=== PATIENT | male | born 1985 | race Caucasian/White ===

== ENCOUNTER 2017-01-30 04:02 | Inpatient (IN) | payer OTHER ==
[2017-01-30] VITALS (9 sets, daily range): BP systolic 117–135; BP diastolic 63–86; PULSE 78–112; RESP 14–22; TEMP 96.4–99; O2SAT 93–100
[~2017-01-30] VITALS: Ht 172.7 cm; Wt 88.5 kg
[2017-01-30] MEDS ORDERED: PROPOFOL 200 MG/20 ML AMP ONE (04:07)
[2017-01-30] MEDS ORDERED: DIPHTH/TETANUS/ACEL PERTUSSIS (BOOSTER) 0.5 ML VIAL/PFS IM ONE (04:17)
[2017-01-30] MEDS ORDERED: ceFAZolin 2 GM PREMIX 50 ML IV STA (04:18)
[2017-01-30] MEDS ORDERED: IOHEXOL 350 MG/ML 10 ML VIAL (for RAD DIAG) IV ONE (04:22)
[2017-01-30 04:23] LABS: AUTOMATED NEUTROPHIL # 6.1 TH/MM3 (1.8-7.7); BASOPHIL % 0.4 % (0.0-2.0); EOSINOPHIL # 0.5 TH/MM3 (0-0.4); EOSINOPHIL % 4.7 % (0.0-4.0); HEMATOCRIT 40.9 % (39.0-51.0); HEMO FLAGS DIFF FINAL; LYMPHOCYTE # 2.9 TH/MM3 (1.0-4.8); MEAN CELL VOLUME 91.2 FL (80.0-100.0); MEAN CORPUSCULAR HEMOGLOBIN 31.4 PG (27.0-34.0); MEAN CORPUSCULAR HGB CONC 34.4 % (32.0-36.0); MONO % 7.7 % (0.0-8.0); NEUT % 59.2 % (16.0-70.0); PLATELET COUNT 227 TH/MM3 (150-450); RED BLOOD COUNT 4.49 MIL/MM3 (4.50-5.90); RED CELL DISTRIBUTION WIDTH 13.3 % (11.6-17.2); WHITE BLOOD COUNT 10.3 TH/MM3 (4.0-11.0)
[2017-01-30 04:26] LABS: I-STAT POTASSIUM 3.8 MMOL/L (3.5-4.9)
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
[2017-01-30 04:56] LABS: APTT (PATIENT) 28.7 SEC (24.3-30.1); PROTHROMBIN TIME - PATIENT 10.9 SEC (9.8-11.6)
[2017-01-30] MEDS ORDERED: POTASSIUM PHOSPHATE MONOBASIC 500 MG TAB PO/TUBE PRN (05:00)
[2017-01-30] MEDS ORDERED: CHLORHEXIDINE GLUCONATE 2 % 1 PACK (2 CLOTHS) TOP PRN (05:00)
[2017-01-30] MEDS ORDERED: MAGNESIUM OXIDE 400 MG TAB PO PRN (05:00)
[2017-01-30] MEDS ORDERED: MAGNESIUM SULFATE INJ 2 GM in SODIUM CHLORIDE 0.9% INJ 96 ML IV PRN (05:00)
[2017-01-30] MEDS ORDERED: MAGNESIUM SULFATE INJ 4 GM in SODIUM CHLORIDE 0.9% INJ 92 ML IV PRN (05:00)
[2017-01-30] MEDS: SODIUM CHLOR 0.9% 1000 ML INJ 1,000 ML IV SCH ×3 (05:00→22:03)
[2017-01-30] MEDS ORDERED: ONDANSETRON HCL 4 MG/2 ML VIAL IV PRN (05:00)
[2017-01-30] MEDS ORDERED: POTASSIUM CHLOR 20 MEQ PREMIX 100 ML IV PRN ×2 (05:00)
[2017-01-30] MEDS ORDERED: MISCELLANEOUS NURSING INFORMATION XX SCH (05:00)
[2017-01-30] MEDS ORDERED: POTASSIUM CHLOR 40 MEQ PREMIX 100 ML IV PRN ×2 (05:00)
[2017-01-30] MEDS ORDERED: SODIUM CHLORIDE 0.9% FLUSH 5 ML FLUSH IV FLUSH PRN (05:00)
[2017-01-30] MEDS ORDERED: POTASSIUM PHOSPHATE INJ 30 MMOL in SODIUM CHLOR 0.9% 250 ML INJ 250 ML IV PRN (05:00)
[2017-01-30] MEDS ORDERED: POTASSIUM PHOSPHATE MONOBASIC 500 MG TAB PO PRN (05:00)
[2017-01-30] MEDS ORDERED: SODIUM PHOSPHATE INJ 30 MMOL in SODIUM CHLOR 0.9% 250 ML INJ 240 ML IV PRN (05:00)
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
[2017-01-30] MEDS ORDERED: LACTATED RINGER'S 1000 ML INJ 1,000 ML IV ONE (05:15)
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
[2017-01-30] MEDS ORDERED: ACETAMINOPHEN 1000 MG/100 ML VIAL IV ONE (08:03)
[2017-01-30] MEDS ORDERED: DOCUSATE SODIUM 50 MG/SENNA 8.6 MG TAB PO SCH (09:00)
[2017-01-30] MEDS ORDERED: SODIUM CHLORIDE 0.9% FLUSH 5 ML FLUSH IV FLUSH SCH (09:00)
[2017-01-30] MEDS: LACTULOSE SYRUP 20 GM/30 ML CUP PO SCH (09:00)
[2017-01-30] MEDS ORDERED: VANCOMYCIN HCL 1000 MG VIAL ONE (09:02)
[2017-01-30 09:09] LABS: AUTOMATED NEUTROPHIL # 8.2 TH/MM3 (1.8-7.7); BASOPHIL % 0.2 % (0.0-2.0); EOSINOPHIL # 0.1 TH/MM3 (0-0.4); EOSINOPHIL % 0.6 % (0.0-4.0); HEMATOCRIT 31.4 % (39.0-51.0); LYMPH % 8.8 % (9.0-44.0); LYMPHOCYTE # 0.9 TH/MM3 (1.0-4.8); MEAN CELL VOLUME 89.1 FL (80.0-100.0); MEAN CORPUSCULAR HEMOGLOBIN 31.5 PG (27.0-34.0); MEAN CORPUSCULAR HGB CONC 35.4 % (32.0-36.0); MONO % 9.7 % (0.0-8.0); NEUT % 80.7 % (16.0-70.0); PLATELET COUNT 211 TH/MM3 (150-450); RED BLOOD COUNT 3.52 MIL/MM3 (4.50-5.90); RED CELL DISTRIBUTION WIDTH 13.2 % (11.6-17.2); WHITE BLOOD COUNT 10.1 TH/MM3 (4.0-11.0)
[2017-01-30 09:11] LABS: BLOOD GAS BASE EXCESS -5.5 mmol/L (-2-2); BLOOD GAS CARBOXYHEMOGLOBIN 3.1 % (0-4); BLOOD GAS HCO3 19 mmol/L (22-26); BLOOD GAS METHEMOGLOBIN 1.2 % (0-2); BLOOD GAS O2 HGB SATURATION 96 % (90-100); BLOOD GAS OXYGEN CONTENT 15.8 Vol % (12.0-20.0); BLOOD GAS PCO2 31 mmHg (38-42); BLOOD GAS PO2 286 mmHg (61-120); BLOOD GAS TOTAL HGB 11.3 G/DL (12.0-16.0); CRITICAL VALUE NO; FIO2 21 %; OXYGEN DEVICE VENTILATOR; TEMP CORR TO 98.6; VENT SETTINGS OR SETTINGS
[2017-01-30 09:12] LABS: HEMO FLAGS AUTO DIFF; STAT YES; ULNAR PULSE PRESENT
[2017-01-30] MEDS ORDERED: BACITRACIN TOP OINT 15 GM TUBE ONE (09:23)
--- NOTE | 2017-01-30 09:41 | PD.OP ---
Operative Report Preoperative Diagnosis: (1) Facial laceration Postoperative Diagnosis: Complex forehead wound with involvement of left [id number] Left cheek open wound [id number] -open orbital wall fracture Procedure: Partial closure ,washout forehead wound Washout open fracture left orbital wall Anesthesia: general Surgeon: Haven Farfan Phlebotomy Services Representative(s): OR-staff Operation and Findings: Patient was brought to the operating room and identified as the patient.After administration of general anesthesia patient's forehead and face was sterilely prepped and draped.Both wound were washed out with copious amount of NS.Left cheek wound has tissue defect is deep involving muscle layer.This will require specialty closure.Attention returned to forehead wound.Here also washout performed and hemostasis obtained.Medial portion of the wound was closed in layers using 3-0 vicryl and 4-0,5-0 prolene.Laterally wound involves eyelid and will also require specialty care.Dressing applied to both wounds. Patient tolerated procedure well.OFMS and plastics have been consulted and will be available tomorrow. Haven Farfan MD Jan 30, 2017 09:41
[2017-01-30 09:43] LABS: BANDS 20 % (0-6); METAMYELOCYTES 1 % (0-1); NEUTROPHIL # MANUAL DIFF 8.7 TH/MM3 (1.8-7.7); POLYS (SEG NEUTROPHILS) 65 % (16-70); WBC DIFF SAMPLE 100
[2017-01-30 09:44] LABS: PLATELET ESTIMATE SMEAR NORMAL (NORMAL); PLATELET MORPHOLOGY NORMAL (NORMAL); SCAN/DIFF FINAL DIFF MANUAL
[2017-01-30] MEDS ORDERED: GENTAMICIN SULFATE 80 MG/2 ML VIAL ONE (09:59)
[2017-01-30] MEDS ORDERED: PHENYLEPH/NS 1000 MCG/10 ML SYR IV ONE (12:00)
[2017-01-30] MEDS ORDERED: ONDANSETRON HCL 4 MG/2 ML VIAL IV PUSH ONE (12:00)
[2017-01-30] MEDS ORDERED: PROPOFOL 200 MG/20 ML AMP IV ONE (12:00)
[2017-01-30] MEDS ORDERED: DEXAMETHASONE SOD PHOS 4 MG/ML VIAL IV ONE (12:00)
[2017-01-30] MEDS ORDERED: LACTATED RINGER'S 1000 ML INJ 2,000 ML IV ONE (12:00)
[2017-01-30] MEDS ORDERED: ceFAZolin 2 GM PREMIX 50 ML IV SCH (12:00)
[2017-01-30] MEDS ORDERED: *MEPERIDINE 25 MG INJ VIAL PERIprocedural Use ONLY ONE (12:33)
[2017-01-30] MEDS ORDERED: DO NOT ADM ANY ANTICOAGULANT DRUGS XX PRN (12:34)
[2017-01-30] MEDS ORDERED: diphenhydrAMINE HCL 25 MG CAP PO PRN (13:00)
[2017-01-30] MEDS ORDERED: MISCELLANEOUS NURSING INFORMATION XX PRN (13:00)
[2017-01-30] MEDS ORDERED: ACETAMINOPHEN 325 MG TAB PO PRN (13:00)
[2017-01-30] MEDS ORDERED: SODIUM CHLORIDE 0.9% FLUSH 5 ML FLUSH IVF PRN (13:00)
[2017-01-30] MEDS ORDERED: Post-op Orders (for Pharmacy) MISC XX ONE (13:00)
[2017-01-30] MEDS ORDERED: NALOXONE HCL 0.4 MG/ML AMP IV PRN (13:00)
[2017-01-30] MEDS ORDERED: oxyCODONE/ACETAMINOPHEN 5 MG/325 MG TAB PO PRN ×2 (13:00)
[2017-01-30] MEDS ORDERED: MAGNESIUM HYDROXIDE SUSP 30 ML CUP PO PRN (13:00)
[2017-01-30] MEDS ORDERED: *morphine SULFATE 8 MG/ML PERIprocedure ONLY ONE (13:01)
--- NOTE | 2017-01-30 13:02 | PD.OP ---
Operative Report Preoperative Diagnosis: (1) Open fracture of left tibia and fibula (2) Distal radius fracture, right Postoperative Diagnosis: (1) Distal radius fracture, right (2) Open fracture of left tibia and fibula Procedure: 1) IM Rodding Left Tibia 2) I and D Left Open tibia Fracture 3) Right Distal Radius ORIF Anesthesia: General Surgeon: Alan Perrin MD Rn Clinical Appeals(s): Bud CRUZ Operation and Findings: see dictation Alan Perrin MD Jan 30, 2017 13:02
[2017-01-30] MEDS ORDERED: fentaNYL CITRATE 250 MCG/5 ML AMP ONE (13:03)
[2017-01-30] MEDS ORDERED: MIDAZOLAM HCL 2 MG/2 ML VIAL ONE (13:03)
[2017-01-30] MEDS ORDERED: MORPHINE SULFATE 4 MG/ML INJ ONE (13:04)
[2017-01-30] MEDS ORDERED: SUGAMMADEX SODIUM 200 MG/2 ML VIAL IV PUSH ONE ×2 (13:04)
[2017-01-30] MEDS: HYDROmorphone HCL PCA 6 MG/30 ML IV SCH ×2 (13:18→22:39)
--- NOTE | 2017-01-30 13:55 | OTSOAPIP ---
PATIENT OFF FLOOR FOR SURGERY. WILL REATTEMPT TOMORROW. Therapist: Zara Gilbert OTR/L Signature on file
[2017-01-30] MEDS: PCA - TOTAL MG DILAUDID DELIVERED PER SHIFT OTHER SCH ×2 (14:00→22:00)
[2017-01-30] MEDS ORDERED: DEXT 5%-NACL 0.45% 1000 ML INJ 1,000 ML IV SCH (14:00)
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
--- NOTE | 2017-01-30 18:30 | RADRPT ---
EXAM DATE/TIME: 01/30/2017 10:26 [facility] COMPARISON: WRIST RIGHT LIMITED(AP & LAT), January 30, 2017, 5:49. INDICATIONS : Open reduction right wrist. MEDICAL HISTORY : None. SURGICAL HISTORY : None. ENCOUNTER: Subsequent ACUITY: 2 days PAIN SCORE: Non-responsive. LOCATION: Right upper extremity FINDINGS: Multiple coned down views of the right wrist were obtained using a matrix camera and demonstrate plac ement of a surgical screw transfixing the distal radial fracture. The fracture fragment is in anatomi c alignment. There is a nondisplaced fracture through the base of the ulnar styloid. The carpus is in tact. CONCLUSION: Status post open ridgid internal fixation. Dedrick Temple MD on January 30, 2017 at 18:27 Board Certified Radiologist. This report was verified electronically.
--- NOTE | 2017-01-30 18:32 | RADRPT ---
EXAM DATE/TIME: 01/30/2017 11:23 [facility] COMPARISON: TIBIA/FIBULA LEFT (AP/LAT), January 30, 2017, 3:57. INDICATIONS : Open reduction of left tibia and fibular fractures. MEDICAL HISTORY : None. SURGICAL HISTORY : None. ENCOUNTER: Subsequent ACUITY: 2 days PAIN SCORE: Non-responsive. LOCATION: Left lateral FINDINGS: Multiple coned down views of the left tibia and fibula were obtained using a matrix camera. This demo nstrates placement of an intramedullary yvonne transfixing the distal femur fracture which is in anatomi c alignment. There's been placement of a long surgical screw into the distal fibula transfixing the f racture. These fracture fragments are in anatomic alignment as well. Ankle mortise is intact. CONCLUSION: Status post open rigid internal fixation. Dedrick Temple MD on January 30, 2017 at 18:29 Board Certified Radiologist. This report was verified electronically.
[2017-01-30] MEDS: DOCUSATE SODIUM 50 MG/SENNA 8.6 MG TAB PO SCH (21:00)
[2017-01-30] MEDS: MAGNESIUM HYDROXIDE SUSP 30 ML CUP PO SCH (21:00)
[2017-01-30] MEDS: ONDANSETRON HCL 4 MG/2 ML VIAL IVP PRN (21:57)
[2017-01-30] MEDS: ceFAZolin 2 GM PREMIX 50 ML IV SCH (21:59)
[2017-01-30] MEDS: FAMOTIDINE 20 MG TAB PO SCH (22:00)
[2017-01-30] MEDS: SODIUM CHLORIDE 0.9% FLUSH 5 ML FLUSH IVF SCH (22:01)
[2017-01-31] VITALS (12 sets, daily range): BP systolic 122–150; BP diastolic 68–85; PULSE 104–136; RESP 9–38; TEMP 98–100.4; O2SAT 95–99
[2017-01-31] MEDS: ONDANSETRON HCL 4 MG/2 ML VIAL IVP PRN (03:33)
[2017-01-31] MEDS: CHLORHEXIDINE GLUCONATE 2 % 1 PACK (2 CLOTHS) TOP SCH (03:52)
[2017-01-31 04:13] LABS: AUTOMATED NEUTROPHIL # 6.5 TH/MM3 (1.8-7.7); BASOPHIL % 0.1 % (0.0-2.0); HEMATOCRIT 31.2 % (39.0-51.0); HEMO FLAGS DIFF FINAL; LYMPH % 9.3 % (9.0-44.0); LYMPHOCYTE # 0.8 TH/MM3 (1.0-4.8); MEAN CELL VOLUME 90.5 FL (80.0-100.0); MEAN CORPUSCULAR HEMOGLOBIN 30.8 PG (27.0-34.0); MONO % 11.9 % (0.0-8.0); NEUT % 78.7 % (16.0-70.0); PLATELET COUNT 202 TH/MM3 (150-450); RED BLOOD COUNT 3.45 MIL/MM3 (4.50-5.90); RED CELL DISTRIBUTION WIDTH 13.4 % (11.6-17.2); WHITE BLOOD COUNT 8.3 TH/MM3 (4.0-11.0)
[2017-01-31] MEDS: ceFAZolin 2 GM PREMIX 50 ML IV SCH (04:28)
[2017-01-31 04:30] LABS: ANION GAP 7 MEQ/L (5-15); AST (GOT) 29 U/L (15-37); BICARBONATE 28.2 MEQ/L (21.0-32.0); BLOOD UREA NITROGEN 10 MG/DL (7-18); CHLORIDE 104 MEQ/L (98-107); GLOMERULAR FILTRATION RATE 72 ML/MIN (>89); MAGNESIUM 2.2 MG/DL (1.5-2.5); POTASSIUM 4.1 MEQ/L (3.5-5.1); SODIUM (NA) 139 MEQ/L (136-145)
[2017-01-31 04:38] LABS: ALKALINE PHOSPHATASE 58 U/L (45-117); ALT (GPT) 29 U/L (12-78); TOTAL BILIRUBIN ADULT 0.5 MG/DL (0.2-1.0)
[2017-01-31] MEDS: PCA - TOTAL MG DILAUDID DELIVERED PER SHIFT OTHER SCH (04:43)
[2017-01-31] MEDS: HYDROmorphone HCL PCA 6 MG/30 ML IV SCH (05:45)
[2017-01-31] MEDS: DOCUSATE SODIUM 50 MG/SENNA 8.6 MG TAB PO SCH ×2 (09:00→21:00)
[2017-01-31] MEDS: LACTULOSE SYRUP 20 GM/30 ML CUP PO SCH (09:00)
[2017-01-31] MEDS: SODIUM CHLORIDE 0.9% FLUSH 5 ML FLUSH IVF SCH ×2 (09:27→21:15)
[2017-01-31] MEDS: ENOXAPARIN SODIUM 40 MG/0.4 ML SYRINGE SQ SCH (12:31)
[2017-01-31] MEDS: KETOROLAC TROMETHAMINE 30 MG/ML (IVP) VIAL IV PUSH SCH ×3 (12:31→23:01)
[2017-01-31] MEDS: POLYETHYLENE GLYCOL 17 GM PKG PO SCH (13:43)
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
[2017-01-31] MEDS ORDERED: LIDOCAINE 1%/EPINEPHrine 1:100,000 SOLN 30 ML VIAL ONE (18:01)
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
--- NOTE | 2017-01-31 19:38 | PD.ORT.PN ---
Subjective Subjective Remarks Patient comfortable. Pain controlled. Objective Vitals Vital Signs Date Time Temp Pulse Resp B/P Pulse Ox O2 Delivery O2 Flow Rate FiO2 01/31/17 16:00 98.9 117 20 150/70 97 01/31/17 16:00 117 01/31/17 14:00 124 01/31/17 12:00 98.2 128 38 150/85 98 01/31/17 12:00 128 01/31/17 10:00 136 01/31/17 08:31 95 Nasal Cannula 21 01/31/17 08:00 112 01/31/17 08:00 98.4 112 19 130/74 99 01/31/17 07:00 98 Room Air 01/31/17 06:00 114 01/31/17 05:45 18 01/31/17 04:43 18 01/31/17 04:00 105 01/31/17 04:00 98.0 105 18 122/71 96 Arterial Line 01/31/17 02:00 113 01/31/17 00:00 104 01/31/17 00:00 98.0 105 9 127/68 99 Arterial Line 01/31/17 00:00 99 Face Tent 40 01/30/17 22:39 13 01/30/17 22:30 93 21 01/30/17 22:00 104 01/30/17 22:00 16 01/30/17 20:00 93 Room Air 01/30/17 20:00 109 01/30/17 20:00 99.0 108 14 135/83 93 Arterial Line I/O 01/30/17 01/30/17 01/30/17 01/31/17 01/31/17 01/31/17 07:00 15:00 23:00 07:00 15:00 23:00 Intake Total 3000 ml 1136 ml 504 ml 2092 ml Output Total 1500 ml 2200 ml 2350 ml 750 ml 2175 ml Balance -1500 ml 800 ml -1214 ml -246 ml -83 ml Intake Oral 0 ml 240 ml 120 ml 1516 ml IV Total 300 ml 896 ml 384 ml 570 ml Other 2700 ml 6 ml Output Urine Total 1500 ml 1900 ml 2350 ml 750 ml 2175 ml Estimated Blood Loss 300 ml # Bowel Movements 0 0 Result Diagram: 01/31/17 0347 01/31/17 0340 Procedures 1) IM Rodding Left Tibia 2) I and D Left Open tibia Fracture 3) Right Distal Radius ORIF Objective Remarks Left knee dressing in place C/D/I calves soft negative jeevan's NVI Right wrist dressing and splint in place good movement of fingers + sensation Assessment & Plan Problem List: (1) Open fracture of left tibia and fibula (2) Distal radius fracture, right Assessment and Plan POD # 1 1) IM Rodding Left Tibia 2) I and D Left Open tibia Fracture 3) Right Distal Radius ORIF PLAN: Pain management - OCEAN FORWARDER DVT Prophylaxis - Lovenox Physical therapy - LLE: Non weight bearing and No ROM. RUE: Non weight bearing and No ROM. D/C Planning - SNF vs Home Monitor Bud Larios Jan 31, 2017 19:38
[2017-01-31] MEDS: MAGNESIUM HYDROXIDE SUSP 30 ML CUP PO SCH (21:00)
[2017-01-31] MEDS: FAMOTIDINE 20 MG TAB PO SCH (21:15)
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
[2017-02-01] VITALS: BP 127/64; PULSE 102; RESP 19; TEMP 99; O2SAT 92
[2017-02-01 04:00] VITALS: BP 127/64; PULSE 102; RESP 19; TEMP 99; O2SAT 92
[2017-02-01] MEDS: CHLORHEXIDINE GLUCONATE 2 % 1 PACK (2 CLOTHS) TOP SCH (04:00)
[2017-02-01 04:40] LABS: AUTOMATED NEUTROPHIL # 3.4 TH/MM3 (1.8-7.7); BASOPHIL % 0.3 % (0.0-2.0); EOSINOPHIL # 0.1 TH/MM3 (0-0.4); EOSINOPHIL % 1.9 % (0.0-4.0); HEMATOCRIT 28.3 % (39.0-51.0); HEMO FLAGS DIFF FINAL; LYMPH % 24.7 % (9.0-44.0); LYMPHOCYTE # 1.3 TH/MM3 (1.0-4.8); MEAN CELL VOLUME 90.7 FL (80.0-100.0); MEAN CORPUSCULAR HGB CONC 34.2 % (32.0-36.0); MONO % 9.7 % (0.0-8.0); NEUT % 63.4 % (16.0-70.0); PLATELET COUNT 166 TH/MM3 (150-450); RED BLOOD COUNT 3.12 MIL/MM3 (4.50-5.90); WHITE BLOOD COUNT 5.3 TH/MM3 (4.0-11.0)
[2017-02-01 04:59] LABS: ANION GAP 5 MEQ/L (5-15); AST (GOT) 27 U/L (15-37); BICARBONATE 28.1 MEQ/L (21.0-32.0); BLOOD UREA NITROGEN 8 MG/DL (7-18); CHLORIDE 107 MEQ/L (98-107); GLOMERULAR FILTRATION RATE 79 ML/MIN (>89); MAGNESIUM 2.1 MG/DL (1.5-2.5); POTASSIUM 3.7 MEQ/L (3.5-5.1); SODIUM (NA) 140 MEQ/L (136-145)
[2017-02-01 05:02] LABS: ALKALINE PHOSPHATASE 53 U/L (45-117); ALT (GPT) 24 U/L (12-78); TOTAL BILIRUBIN ADULT 0.5 MG/DL (0.2-1.0)
[2017-02-01] MEDS: KETOROLAC TROMETHAMINE 30 MG/ML (IVP) VIAL IV PUSH SCH ×4 (05:09→23:29)
[2017-02-01 08:00] VITALS: BP 118/71; PULSE 93; RESP 18; TEMP 98.5; O2SAT 97
--- NOTE | 2017-02-01 08:20 | PD.ORT.PN ---
Subjective Subjective Remarks patient comfortable Objective Vitals Vital Signs Date Time Temp Pulse Resp B/P Pulse Ox O2 Delivery O2 Flow Rate FiO2 02/01/17 04:00 99.0 102 19 127/64 92 02/01/17 04:00 102 02/01/17 00:07 19 02/01/17 00:00 99.0 102 19 127/64 92 02/01/17 00:00 102 01/31/17 21:01 98 21 01/31/17 20:00 112 01/31/17 20:00 100.4 112 29 126/74 95 01/31/17 19:00 95 Room Air 01/31/17 16:00 98.9 117 20 150/70 97 01/31/17 16:00 117 01/31/17 14:00 124 01/31/17 12:00 98.2 128 38 150/85 98 01/31/17 12:00 128 01/31/17 10:00 136 01/31/17 08:31 95 Nasal Cannula 21 I/O 01/31/17 01/31/17 01/31/17 02/01/17 02/01/17 02/01/17 07:00 15:00 23:00 07:00 15:00 23:00 Intake Total 504 ml 2092 ml 960 ml 0 ml Output Total 750 ml 2175 ml 1250 ml Balance -246 ml -83 ml -290 ml 0 ml Intake Oral 120 ml 1516 ml 960 ml 0 ml IV Total 384 ml 570 ml Other 6 ml Output Urine Total 750 ml 2175 ml 1250 ml # Voids 0 # Bowel Movements 0 0 0 Result Diagram: 02/01/17 0355 02/01/17 0355 Procedures 1) IM Rodding Left Tibia 2) I and D Left Open tibia Fracture 3) Right Distal Radius ORIF Objective Remarks Left knee dressing in place C/D/I calves soft negative jeevan's NVI Right wrist dressing and splint in place good movement of fingers NVI Assessment & Plan Ortho Post Op Day #: 2 Problem List: (1) Open fracture of left tibia and fibula (2) Distal radius fracture, right Assessment and Plan POD # 2 1) IM Rodding Left Tibia 2) I and D Left Open tibia Fracture 3) Right Distal Radius ORIF PLAN: Fracture boot Pain management - CONSERVATION ASSISTANT DVT Prophylaxis - Lovenox Physical therapy - LLE: Non weight bearing and No ROM. RUE: Non weight bearing and No ROM. D/C Planning - SNF vs Home Monitor Alan Perrin MD Feb 01, 2017 08:20
[2017-02-01] MEDS: POLYETHYLENE GLYCOL 17 GM PKG PO SCH (08:50)
[2017-02-01] MEDS: SODIUM CHLORIDE 0.9% FLUSH 5 ML FLUSH IVF SCH ×2 (08:50→23:32)
[2017-02-01] MEDS: DOCUSATE SODIUM 50 MG/SENNA 8.6 MG TAB PO SCH ×2 (08:50→21:00)
[2017-02-01] MEDS: ENOXAPARIN SODIUM 40 MG/0.4 ML SYRINGE SQ SCH (11:23)
[2017-02-01 11:36] VITALS: BP 127/75; PULSE 83; RESP 19; TEMP 98.2; O2SAT 98
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
[2017-02-01 16:00] VITALS: BP 119/75; PULSE 85; RESP 18; TEMP 98.8; O2SAT 97
[2017-02-01 19:40] VITALS: BP 124/70; PULSE 100; RESP 18; TEMP 98.5; O2SAT 99
[2017-02-01] MEDS: MAGNESIUM HYDROXIDE SUSP 30 ML CUP PO SCH (21:00)
[2017-02-01] MEDS: FAMOTIDINE 20 MG TAB PO SCH (23:29)
[2017-02-02 00:10] VITALS: BP 146/65; PULSE 81; RESP 16; TEMP 97.7; O2SAT 97
[2017-02-02 04:10] VITALS: BP 126/67; PULSE 73; RESP 17; TEMP 97.7; O2SAT 98
[2017-02-02 08:00] VITALS: BP 121/79; PULSE 85; RESP 16; TEMP 98.7; O2SAT 97
[2017-02-02] MEDS: POLYETHYLENE GLYCOL 17 GM PKG PO SCH (08:30)
[2017-02-02] MEDS ORDERED: MAGNESIUM CITRATE SOLN 300 ML BTL PO ONE (08:30)
[2017-02-02] MEDS: DOCUSATE SODIUM 50 MG/SENNA 8.6 MG TAB PO SCH ×2 (08:31→19:35)
[2017-02-02] MEDS: SODIUM CHLORIDE 0.9% FLUSH 5 ML FLUSH IVF SCH ×2 (09:00→19:35)
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
[2017-02-02 11:53] VITALS: BP 120/73; PULSE 74; RESP 16; TEMP 97.9; O2SAT 99
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
[2017-02-02] MEDS: KETOROLAC TROMETHAMINE 30 MG/ML (IVP) VIAL IV PUSH SCH ×4 (13:11→23:01)
[2017-02-02] MEDS: ENOXAPARIN SODIUM 40 MG/0.4 ML SYRINGE SQ SCH (13:14)
[2017-02-02] MEDS ORDERED: WALKER/FOLDING1 MIS (14:40)
[2017-02-02] MEDS ORDERED: WHEEMIS3 (14:40)
[2017-02-02 16:05] VITALS: BP 127/69; PULSE 94; RESP 16; TEMP 97.9; O2SAT 99
[2017-02-02] MEDS: MAGNESIUM HYDROXIDE SUSP 30 ML CUP PO SCH (19:35)
[2017-02-02] MEDS: FAMOTIDINE 20 MG TAB PO SCH (19:35)
[2017-02-02 19:39] VITALS: BP 128/69; PULSE 88; RESP 18; TEMP 98.3; O2SAT 100
[2017-02-03 00:10] VITALS: BP 155/72; PULSE 76; RESP 17; TEMP 97.7; O2SAT 99
[2017-02-03 04:10] VITALS: BP 121/59; PULSE 72; RESP 17; TEMP 97.1; O2SAT 99
[2017-02-03] MEDS: KETOROLAC TROMETHAMINE 30 MG/ML (IVP) VIAL IV PUSH SCH ×4 (05:57→23:46)
[2017-02-03] MEDS ORDERED: BEDSIDE COMMODE1 MI1 (07:08)
[2017-02-03] MEDS ORDERED: SENN1TAB PO (07:09)
[2017-02-03 08:00] VITALS: BP 117/67; PULSE 72; RESP 18; TEMP 97.3; O2SAT 100
[2017-02-03] MEDS: POLYETHYLENE GLYCOL 17 GM PKG PO SCH (09:00)
[2017-02-03] MEDS: DOCUSATE SODIUM 50 MG/SENNA 8.6 MG TAB PO SCH ×2 (10:01→19:56)
[2017-02-03] MEDS: SODIUM CHLORIDE 0.9% FLUSH 5 ML FLUSH IVF SCH ×2 (10:01→19:56)
[2017-02-03 12:04] VITALS: BP 122/76; PULSE 78; RESP 18; TEMP 96.2; O2SAT 99
[2017-02-03] MEDS: ENOXAPARIN SODIUM 40 MG/0.4 ML SYRINGE SQ SCH (12:55)
--- NOTE | 2017-02-03 14:05 | PD.ORT.PN ---
Subjective Subjective Remarks Patient comfortable. Pain controlled. NAD. Objective Vitals Vital Signs Date Time Temp Pulse Resp B/P Pulse Ox O2 Delivery O2 Flow Rate FiO2 02/03/17 12:04 96.2 78 18 122/76 99 02/03/17 08:00 97.3 72 18 117/67 100 02/03/17 04:10 97.1 72 17 121/59 99 02/03/17 00:10 97.7 76 17 155/72 99 02/02/17 19:39 98.3 88 18 128/69 100 02/02/17 16:05 97.9 94 16 127/69 99 I/O 02/02/17 02/02/17 02/02/17 02/03/17 02/03/17 02/03/17 07:00 15:00 23:00 07:00 15:00 23:00 Intake Total 1680 ml 560 ml 240 ml Output Total 800 ml 275 ml Balance 880 ml 560 ml -35 ml Intake Oral 1680 ml 560 ml 240 ml Output Urine Total 800 ml 275 ml # Voids 2 # Bowel Movements 0 1 0 Result Diagram: 02/01/17 0355 02/01/17 0355 Procedures 1) IM Rodding Left Tibia 2) I and D Left Open tibia Fracture 3) Right Distal Radius ORIF Objective Remarks Left knee fracture boot in place dressing in place C/D/I calves soft negative jeevan's NVI Right wrist dressing and splint in place good movement of fingers NVI Assessment & Plan Problem List: (1) Open fracture of left tibia and fibula (2) Distal radius fracture, right Assessment and Plan POD # 2 1) IM Rodding Left Tibia 2) I and D Left Open tibia Fracture 3) Right Distal Radius ORIF PLAN: Fracture boot Pain management - Percocet DVT Prophylaxis - Lovenox Physical therapy - LLE: Non weight bearing and No ROM. RUE: Non weight bearing and No ROM. D/C Planning - anticipating to return home [place] [facility] stable for discharge. Patient states he will be f/u with orthopedic surgeon back home. Bud Larios Feb 03, 2017 14:05
[2017-02-03] MEDS ORDERED: XARE20TA PO (15:58)
[2017-02-03 16:00] VITALS: BP 116/71; PULSE 90; RESP 18; TEMP 98.1; O2SAT 99
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
[2017-02-03] MEDS: MAGNESIUM HYDROXIDE SUSP 30 ML CUP PO SCH (19:56)
[2017-02-03] MEDS: FAMOTIDINE 20 MG TAB PO SCH (19:56)
[2017-02-03 20:10] VITALS: BP 117/65; PULSE 75; RESP 16; TEMP 96.5; O2SAT 99
[2017-02-04 00:15] VITALS: BP 118/69; PULSE 83; RESP 16; TEMP 97.8; O2SAT 99
[2017-02-04] MEDS: KETOROLAC TROMETHAMINE 30 MG/ML (IVP) VIAL IV PUSH SCH ×2 (05:55→13:00)
[2017-02-04 08:18] VITALS: BP 114/53; PULSE 72; RESP 18; TEMP 98; O2SAT 99
[2017-02-04] MEDS: POLYETHYLENE GLYCOL 17 GM PKG PO SCH (09:00)
[2017-02-04] MEDS: DOCUSATE SODIUM 50 MG/SENNA 8.6 MG TAB PO SCH (09:00)
[2017-02-04] MEDS: SODIUM CHLORIDE 0.9% FLUSH 5 ML FLUSH IVF SCH (10:15)
[2017-02-04 12:15] VITALS: BP 107/69; PULSE 82; RESP 18; TEMP 97.7; O2SAT 100
[2017-02-04] MEDS ORDERED: PERC5TAB12 PO (12:17)
[2017-02-04] MEDS: ENOXAPARIN SODIUM 40 MG/0.4 ML SYRINGE SQ SCH (12:59)
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
== END 2017-02-04 16:35 | disposition home or self-care (01) | DRG 958 ==
LOC: NEPI 04:02 → NEDA 04:32 → EDBD 04:32 → N03A 04:40 → N06B 02-01 04:20
PROVIDERS: ADMIT Surgery Trauma Surgery; ATTEND Surgery Trauma Surgery
PROC: 0JQ10ZZ Repair Face Subcutaneous Tissue and Fascia, Open Approach (ICD-10-PCS; 2017-01-30)
PROC: 0QSHXZZ Reposition Left Tibia, External Approach (ICD-10-PCS; 2017-01-30)
PROC: 3E1038Z Irrigation of Skin and Mucous Membranes using Irrigating Substance, Percutaneous Approach (ICD-10-PCS; 2017-01-30)
PROC: 0QSH06Z Reposition Left Tibia with Intramedullary Internal Fixation Device, Open Approach (ICD-10-PCS; principal; 2017-01-30 08:07)
PROC: 0PSH04Z Reposition Right Radius with Internal Fixation Device, Open Approach (ICD-10-PCS; 2017-01-30 08:07)
DX: S82.202B Unspecified fracture of shaft of left tibia, initial encounter for open fracture type I or II (principal); S27.0XXA Traumatic pneumothorax, initial encounter; S02.32XB Fracture of orbital floor, left side, initial encounter for open fracture; S52.613A Displaced fracture of unspecified ulna styloid process, initial encounter for closed fracture; S01.21XA Laceration without foreign body of nose, initial encounter; F10.120 Alcohol abuse with intoxication, uncomplicated; S82.402B Unspecified fracture of shaft of left fibula, initial encounter for open fracture type I or II; S02.2XXA Fracture of nasal bones, initial encounter for closed fracture; S01.81XA Laceration without foreign body of other part of head, initial encounter; H53.2 Diplopia; H11.32 Conjunctival hemorrhage, left eye; V28.4XXA Motorcycle driver injured in noncollision transport accident in traffic accident, initial encounter; Y90.6 Blood alcohol level of 120-199 mg/100 ml
CPT/HCPCS: 27752; 70450; 70486; 71010; 71260; 72125; 72170; 73100; 73590; 74177; 76000; 80053; 80307; 82435; 82565; 82805; 82947; 83735; 84100; 84132; 84295; 84520; 85007; 85025; 85027; 85384; 85610; 85730; 86850; 86900; 86901; 90471; 94150; 96361; 96374; 99152; 99291; C1713; G0390; J0131; J0690; J1100; J1170; J1580; J1650; J1885; J2175; J2250; J2270; J2370; J2405; J3010; J3370; J7030; J7120; L2114; Q9967